=== PATIENT | female | born 1985 | race Two or more races ===

== ENCOUNTER → 2025-08-18 | Outpatient (CLI) | payer BC, SELFPAY ==
--- NOTE | 2025-08-18 08:51 | XR_ITS ---
Examination: Lumbar spine, 5 views Technique: Lumbar spine AP, lateral, coned lateral lower lumbar spine, bilateral obliques 5 views Exam date and time: August 18, 2025, 0851 hours INDICATION: Patient fell August 01, 2025 with injury to the back, back pain. FINDINGS: 3 mm calculus midpole right kidney Moderate osteopenia Diffuse mild to moderate facet arthropathy No lumbar fracture No significant lumbar disc narrowing IMPRESSION: No lumbar fracture
--- NOTE | 2025-08-18 08:51 | XR_ITS ---
Examination: Right hip AP, lateral, AP pelvis 3 views Technique: Hip AP lateral, AP pelvis, 3 views Exam date and time: August 18, 2025, 0858 hours INDICATIONS: Patient fell August 01, 2025 with injury to the right hip, right hip pain. FINDINGS: No right hip fracture or dislocation Left hip intact Bones of the pelvis intact IMPRESSION: No acute hip or pelvic fracture.
== END | disposition home or self-care (01) ==
LOC: CDIM 08:26
PROVIDERS: PCP Family Medicine; Referring Provider Nurse Practitioner Family; Visit Provider Nurse Practitioner Family
DX: S39.92XD Unspecified injury of lower back, subsequent encounter (principal); S79.911D Unspecified injury of right hip, subsequent encounter; W19.XXXD Unspecified fall, subsequent encounter
CPT/HCPCS: 72110; 73502